=== PATIENT | female | born 1980 | race American Indian/Alaskan Native ===

== ENCOUNTER 2022-01-02 11:01 | Emergency (ER) | payer OTHER ==
[~2022-01-02] VITALS: Ht 177.8 cm; Wt 135.0 kg
[2022-01-02 11:12] VITALS: BP 176/92
[2022-01-02] MEDS ORDERED: T3 PO (12:49)
== END 2022-01-02 12:59 | disposition home or self-care (01) ==
LOC: ER 11:01
DX: M54.9 Dorsalgia, unspecified (principal); Z98.890 Other specified postprocedural states
CPT/HCPCS: 99281